=== PATIENT | male | born 1995 | race Caucasian/White ===

== ENCOUNTER 2018-09-14 12:30 | Emergency (ER) | payer OTHER ==
--- NOTE | 2018-09-14 12:49 | PDOC ---
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 Has no other complaints. Past History - Past Medical History Allergies/Adverse Reactions: Allergies Allergy/AdvReac Type Severity Reaction Status Date / Time No Known Allergies Allergy Verified 09/14/18 12:48 Home Medications: Ambulatory Orders NK [No Known Home Medication] 09/14/18 *Physical Exam - Physical Exam Comments: 09/14/18 13:24 tenderness to base of L 3rd and 4th mtp join painful with midfoot squeeze test painful with passive flexio nand extension of the 3rd mtp NV intact full ROM Medical Decision Making - Medical Decision Making 09/14/18 13:02 ED Cousre dislocation vs fx vs strain XR *DC/Admit/Observation/Transfer Diagnosis at time of Disposition: Foot pain, left - Discharge Dispostion Disposition: HOME Condition at time of disposition: Fair Decision to Admit order: No - Referrals Referrals: Shorty Sethi DO [Staff Physician] - - Patient Instructions Printed Discharge Instructions: DI for Foot Pain Additional Instructions: You were seen in the ED for complaints of L foot pain. In the ED you were evaluated with imaging. Your results did not show an acute fracture. There does not appear to be an acute need for immediate hospitalization. You are advised to follow up with your Primary Care Physician within 1 week. You were given a referral to Orthopedics and are advised to follow up within 1 week. Take over the counter Ibuprofen 600 every 8 hours for 3 days w/ food for pain relief. Rest, ice and elevate your foot. You are to take 1 week off from running and playing soccer. Return to the ED immediately if you experience worsening L foot pain, numbness, tingling, change in color of the toes, muscle weakness or fever. Usted fue visto en el servicio de urgencias por quejas de dolor en el pie. En el servicio de urgencias te evaluaron con imgenes. Migdalia resultados no mostraron martin fractura aguda. No parece rubia martin necesidad aguda de hospitalizacin inmediata. Se recomienda realizar un seguimiento con james mdico de atencin primaria dentro de 1 semana. Se le kevin martin referencia a ortopedia y se le recomienda hacer un seguimiento dentro de 1 semana. [place] el contador Ibuprofen 600 cada 8 horas leroy 3 rosenthal con alimentos para aliviar el dolor. Descansa, hielo y eleva tu pie. Debes tomarte martin semana keyona de correr y jugar ftbol. Regrese a la denise de urgencias inmediatamente si experimenta empeoramiento del dolor en el pie L, entumecimiento, hormigueo, cambio en el color de los dedos de los pies, debilidad muscular o fiebre. Open in [employer]late - Post Discharge Activity Forms/Work/School Notes: Back to School
[2018-09-14 12:55] VITALS: BP 122/74; PULSE 53; TEMP 98.8; BMI 24.4
[2018-09-14] MEDS ORDERED: IBUPROFEN 600 MG TABLET (FP) PO ONE ×2 (13:03→13:08)
--- NOTE | 2018-09-14 14:10 | PDOC ---
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 denies any memorable trauma/falls/injuries. denies any numbness/tingling/weakness, fever/chills. no hip or knee pain. no prior injuries in the past. Justin ibuprofen intermittently without significan timprovement. he had gone to his hop strainer who gave hm a hole sole boot and referred him to the ER for xrays. Family hx: non contributory Social: denies ivdu - Physicial Exam PE: 09/14/18 14:10 GENERAL: The patient is awake, alert, and fully oriented, Nontoxic - in no acute distress. EXTREMITIES: mild ttp to 3rd MTP with mild swelling without erythema, induration , fluctuance, warmth. mild pain with flexion/exnteion of the 3th digit. no fb appreciated, no skni breakage/puncture wounds. - Medical Decision Making 09/14/18 14:11 xrays neg for fx no signs of infectious process will treat supportively possibly over use injury will refer to pmd/ortho for further mangement if not improveda fter 5 days
== END 2018-09-14 14:26 | disposition home or self-care (01) ==
LOC: FER 12:30
DX: M79.672 Pain in left foot (principal)
CPT/HCPCS: 73610-TC-LT-FY; 73630-TC-LT; 99282-25